=== PATIENT | female | born 1995 | race African-American/Black ===

== ENCOUNTER 2017-07-16 23:10 | Emergency (ER) | payer MEDICAID ==
[~2017-07-16 23:10] MED LIST: ALBU18HF2 IH; ALBU18HF2 INH; ALBU6.7H INH; ALBU8HFA PO; PRED20TA PO
[2017-07-16 23:12] VITALS: BP 107/74
[2017-07-16] MEDS ORDERED: ALBU8HFA PO (23:47)
== END 2017-07-17 00:16 | disposition home or self-care (01) ==
LOC: ER 23:10
DX: J45.909 Unspecified asthma, uncomplicated (principal); R07.89 Other chest pain; F12.10 Cannabis abuse, uncomplicated
CPT/HCPCS: 99283

== ENCOUNTER 2018-03-22 08:58 | Emergency (ER) | payer MEDICAID ==
[~2018-03-22] VITALS: Ht 160 cm; Wt 59.0 kg
[2018-03-22 09:11] VITALS: BP 116/72
[2018-03-22] MEDS ORDERED: ALBU6.7H INH (09:25)
[2018-03-22] MEDS ORDERED: BECL7.3A INH (09:28)
== END 2018-03-22 09:39 | disposition home or self-care (01) ==
LOC: ER 08:59
DX: J45.909 Unspecified asthma, uncomplicated (principal); Z76.0 Encounter for issue of repeat prescription; F12.90 Cannabis use, unspecified, uncomplicated; F17.200 Nicotine dependence, unspecified, uncomplicated; Z79.899 Other long term (current) drug therapy
CPT/HCPCS: 99283

== ENCOUNTER 2018-05-04 13:11 | Emergency (ER) | payer MEDICAID ==
[~2018-05-04] VITALS: Ht 160 cm; Wt 54.5 kg
[~2018-05-04 13:11] MED LIST changes: +BECL7.3A INH
[2018-05-04 13:56] VITALS: BP 103/51
[2018-05-04] MEDS ORDERED: ALBU8.5H8 IH (14:59)
[2018-05-04] MEDS ORDERED: PRED10TA PO (14:59)
[2018-05-04] MEDS ORDERED: TAM75C PO (14:59)
[2018-05-04] MEDS: predniSONE 20 mg tablet PO ONE (15:10)
[2018-05-04] MEDS: ipratropium/albuterol 3ml nebule NEB ONE (15:49)
== END 2018-05-04 16:06 | disposition home or self-care (01) ==
LOC: ER 13:11
DX: J22 Unspecified acute lower respiratory infection (principal); J45.909 Unspecified asthma, uncomplicated; F12.10 Cannabis abuse, uncomplicated; Z79.899 Other long term (current) drug therapy
CPT/HCPCS: 94640; 94760; 99283; J7512

== ENCOUNTER 2018-09-19 07:38 | Emergency (ER) | payer MEDICAID ==
[~2018-09-19] VITALS: Ht 160 cm; Wt 59.5 kg
[~2018-09-19 07:38] MED LIST changes: +ALBU8.5H8 IH; +PRED10TA PO
[2018-09-19] MEDS ORDERED: BECL7.3A INH (07:58)
[2018-09-19] MEDS ORDERED: ALBU18HF2 INH (07:58)
[2018-09-19 08:29] VITALS: BP 118/68
== END 2018-09-19 08:31 | disposition home or self-care (01) ==
LOC: ER 07:39
DX: J45.909 Unspecified asthma, uncomplicated (principal); Z76.0 Encounter for issue of repeat prescription; F12.90 Cannabis use, unspecified, uncomplicated; Z79.899 Other long term (current) drug therapy
CPT/HCPCS: 99283

== ENCOUNTER 2020-03-27 16:28 | Emergency (ER) | payer MEDICAID ==
[~2020-03-27] VITALS: Ht 160 cm; Wt 56.2 kg
[~2020-03-27 16:28] MED LIST changes: -ALBU6.7H INH; +ALBU6.7H9 INH
[2020-03-27 16:46] VITALS: BP 107/62
[2020-03-27] MEDS ORDERED: ALBU8HFA PO (17:06)
== END 2020-03-27 17:29 | disposition home or self-care (01) ==
LOC: ER 16:29
DX: J45.909 Unspecified asthma, uncomplicated (principal); F12.90 Cannabis use, unspecified, uncomplicated; Z72.89 Other problems related to lifestyle; Z79.899 Other long term (current) drug therapy
CPT/HCPCS: 99283